=== PATIENT | female | born 1935 | race Caucasian/White ===

== ENCOUNTER → 2016-10-16 | Outpatient (CLI) | payer OTHER ==
[~2016-10-16] MED LIST: ADULT LOW DOSE81 M1 PO; ATIVAN0.5 MG PO; Ativan PO; CELECOXIB200 MG PO; CENTRUM SILV1 TABLET PO; CENTRUM SILVER1 EAC3 PO; CITRACAL D + H1 EACH PO; Citracal Maximum (Ca PO; ESTER-C 1,0001 EACH PO; Ecotrin PO; FOLIC ACID1 MG PO; Hydrodiuril,Oretic,E PO; K-Dur PO; NEURONTIN300 MG PO; NEXIUM20 MG PO; NORVASC2.5 MG PO; Neurontin PO; PRAVACHOL10 MG PO; Pravachol PO; PriLOSEC PO; REFRESH EYE DR1 EACH BOTH EYES; RESTASIS 01 DROP/0.4 BOTH EYES; Restasis 0.05% BOTH EYES; TIMOPTIC-XE GEL5 ML RIGHT EYE; TOPROL XL50 MG PO; TYLENOL EXTRA500 MG PO; Tears Naturale II,Ar BOTH EYES; Timoptic-0.5%,Isatol RIGHT EYE; Toprol XL PO; ULTRAM50 MG PO; Ultram PO; Vicodin,Norco 5/325 PO; celeBREX PO
== END | disposition home or self-care (01) ==
DX: I69.391 Dysphagia following cerebral infarction (principal)
CPT/HCPCS: 92611 GN; G8996 GN; G8997 GN; G8998 GN